=== PATIENT | male | born 1970 | race Caucasian/White ===

== ENCOUNTER → 2016-09-08 | Outpatient (CLI) | payer MEDICARE, OTHER ==
[~2016-09-08] VITALS: Ht 179.1 cm; Wt 147.0 kg
[~2016-09-08] MED LIST: COZAAR100 MG PO; NORCO 325 MG-51 TAB PO; RITALIN LA30 MG PO; RITALIN10 MG PO; UNABLE; ZOLOFT 100MG100 MG PO
[2016-09-08 10:36] VITALS: BP 142/88; PULSE 104
== END ==
LOC: LIGHT 10:10
DX: M54.5 Low back pain (principal); M51.36 Other intervertebral disc degeneration, lumbar region; F33.9 Major depressive disorder, recurrent, unspecified; I10 Essential (primary) hypertension; Z68.42 Body mass index [BMI] 45.0-49.9, adult

== ENCOUNTER → 2016-09-21 | Outpatient (CLI) | payer MEDICARE, OTHER | LOC: LIGHT 13:55 | DX: Z02.89 Encounter for other administrative examinations (principal) ==

== ENCOUNTER → 2016-10-05 | Outpatient (CLI) | payer MEDICARE, OTHER ==
[~2016-10-05] VITALS: Ht 179.1 cm; Wt 148.1 kg
[2016-10-05 16:26] VITALS: BP 119/64; PULSE 115
== END ==
LOC: LIGHT 14:13
DX: M54.5 Low back pain (principal); M51.36 Other intervertebral disc degeneration, lumbar region; F33.9 Major depressive disorder, recurrent, unspecified; I10 Essential (primary) hypertension; Z68.42 Body mass index [BMI] 45.0-49.9, adult

== ENCOUNTER → 2016-10-18 | Outpatient (CLI) | payer MEDICARE, OTHER | LOC: LIGHT 12:58 | DX: Z01.89 Encounter for other specified special examinations (principal) ==

== ENCOUNTER → 2016-11-16 | Outpatient (CLI) | payer MEDICARE, OTHER ==
[~2016-11-16] VITALS: Ht 179.1 cm; Wt 145.4 kg
[2016-11-16 12:54] VITALS: BP 133/78; PULSE 95
== END ==
LOC: LIGHT 12:45
DX: M54.5 Low back pain (principal); M51.36 Other intervertebral disc degeneration, lumbar region; F33.9 Major depressive disorder, recurrent, unspecified; I10 Essential (primary) hypertension; Z68.42 Body mass index [BMI] 45.0-49.9, adult; Z71.3 Dietary counseling and surveillance

== ENCOUNTER → 2016-12-14 | Outpatient (CLI) | payer MEDICARE, OTHER ==
[~2016-12-14] VITALS: Ht 179.1 cm; Wt 141.5 kg
[2016-12-14 15:02] VITALS: BP 138/80; PULSE 100
== END ==
LOC: LIGHT 09:16
DX: Z01.818 Encounter for other preprocedural examination (principal)

== ENCOUNTER 2016-12-30 14:00 | Outpatient (RCR) | payer MEDICARE, OTHER | END 2017-01-07 16:42 | LOC: WSPT 14:00 | DX: S16.1XXA Strain of muscle, fascia and tendon at neck level, initial encounter (principal); Z98.1 Arthrodesis status | CPT/HCPCS: G8990-GP; G8991-GP ==

== ENCOUNTER → 2017-01-04 | Outpatient (CLI) | payer MEDICARE, OTHER | LOC: COL.RAD 09:15 | DX: M75.112 Incomplete rotator cuff tear or rupture of left shoulder, not specified as traumatic (principal) | CPT/HCPCS: A9585; Q9967 ==

== ENCOUNTER → 2017-02-10 | Outpatient (CLI) | payer MEDICARE, OTHER ==
[~2017-02-10] VITALS: Ht 179.1 cm; Wt 143.6 kg
[2017-02-10 13:29] VITALS: BP 110/70; PULSE 84
== END ==
LOC: LIGHT 11:15
DX: M54.5 Low back pain (principal); M51.36 Other intervertebral disc degeneration, lumbar region; F33.9 Major depressive disorder, recurrent, unspecified; I10 Essential (primary) hypertension; Z68.41 Body mass index [BMI] 40.0-44.9, adult; Z71.3 Dietary counseling and surveillance

== ENCOUNTER → 2017-03-17 | Outpatient (CLI) | payer MEDICARE, OTHER ==
[~2017-03-17] VITALS: Ht 179.1 cm; Wt 147.0 kg
[2017-03-17 14:02] VITALS: BP 110/74; PULSE 72
== END ==
LOC: LIGHT 10:51
DX: M54.5 Low back pain (principal); M51.36 Other intervertebral disc degeneration, lumbar region; F33.9 Major depressive disorder, recurrent, unspecified; I10 Essential (primary) hypertension; Z68.42 Body mass index [BMI] 45.0-49.9, adult; Z71.3 Dietary counseling and surveillance

== ENCOUNTER → 2017-03-21 | Outpatient (CLI) | payer MEDICARE, OTHER | LOC: BHSO 09:47 | DX: F43.10 Post-traumatic stress disorder, unspecified (principal) | CPT/HCPCS: 90791-AI ==

== ENCOUNTER 2017-04-07 15:38 | Outpatient (RCR) | payer MEDICARE, OTHER | END 2017-04-07 16:47 | LOC: WSPT 15:38 | DX: Z01.818 Encounter for other preprocedural examination (principal); M75.22 Bicipital tendinitis, left shoulder | CPT/HCPCS: G8984-GP; G8985-GP ==

== ENCOUNTER → 2017-05-04 | Outpatient (CLI) | payer MEDICARE, OTHER | LOC: BHSO 13:54 | DX: F41.1 Generalized anxiety disorder (principal) | CPT/HCPCS: G0463 ==

== ENCOUNTER → 2017-06-20 | Outpatient (CLI) | payer MEDICARE, OTHER | LOC: COL.RAD 11:20 | DX: R31.9 Hematuria, unspecified (principal) | CPT/HCPCS: Q9967 ==

== ENCOUNTER 2017-06-27 15:00 | Outpatient (RCR) | payer MEDICARE, OTHER | END 2017-06-27 15:34 | disposition home or self-care (01) | LOC: WSPT 15:00 | DX: Z47.89 Encounter for other orthopedic aftercare (principal); Z98.890 Other specified postprocedural states | CPT/HCPCS: G0283-GP; G8984-GP; G8985-GP; G8986-GP ==

== ENCOUNTER → 2017-06-28 | Outpatient (CLI) | payer MEDICARE, OTHER | LOC: BHSO 10:16 | DX: F43.10 Post-traumatic stress disorder, unspecified (principal) | CPT/HCPCS: G0463 ==

== ENCOUNTER → 2017-08-05 | Outpatient (CLI) | payer MEDICARE, OTHER | LOC: BHSO 15:50 | DX: F41.1 Generalized anxiety disorder (principal); F43.10 Post-traumatic stress disorder, unspecified | CPT/HCPCS: G0463 ==

== ENCOUNTER → 2017-10-25 | Outpatient (CLI) | payer MEDICARE, OTHER | LOC: BHSO 14:49 | DX: F43.10 Post-traumatic stress disorder, unspecified (principal) ==

== ENCOUNTER 2017-11-17 20:20 | Emergency (ER) | payer MEDICARE, OTHER ==
[~2017-11-17] VITALS: Ht 177.8 cm; Wt 150.0 kg
[2017-11-17 20:23] VITALS: BP 146/89; TEMP 98.8
[2017-11-17 21:26] LABS: BASO # 0.1 (0.0-0.2); BASO % 0.6 % (0.0-2.0); EOS # 0.3 (0.0-0.7); EOS % 3.5 % (0-4.0); GRAN # 5.2 (1.4-6.5); GRAN % 65.3 % (42.2-75.2); HEMATOCRIT 43.8 % (42.0-52.0); HEMOGLOBIN 15.3 g/dl (13.5-18.0); LYMPH # 1.6 (1.2-3.4); LYMPH % 20.3 % (20.0-51.0); MEAN CELL VOLUME 90 fl (80.0-100.0); MEAN CORPUSCULAR HEMOGLOBIN 32 pg (27.0-31.0); MEAN CORPUSCULAR HGB CONC 35 g/dl (33.0-37.0); MEAN PLATELET VOLUME 9.7 fl (7.4-10.4); MONO # 0.8 (0.1-0.6); PLATELET COUNT 212 K/mm3 (130-400); RED BLOOD COUNT 4.85 M/mm3 (4.20-5.60); REDCELL DISTRIBUTION WIDTH-CV 12.8 % (11.5-14.5)
[2017-11-17 21:38] LABS: ALBUMIN 4.1 gm/dL (3.5-5.0); BILIRUBIN,TOTAL 0.3 mg/dL (0.0-1.0); CALCIUM 9.3 mg/dL (8.4-10.2); CREATININE, serum 1.34 mg/dL (0.66-1.25)
[2017-11-17] MEDS ORDERED: NORCO 325 MG-51 TAB PO (22:16)
[2017-11-17 23:00] VITALS: PULSE 92
[2017-11-17] MEDS ORDERED: LAMICTAL200 MG PO (23:36)
[2017-11-17] MEDS ORDERED: RITALIN 20M20 MG/TAB PO (23:36)
[2017-11-17] MEDS ORDERED: VIIBRYD40 MG PO (23:36)
[2017-11-17] MEDS ORDERED: NEURONTIN300 MG/CAP PO (23:36)
== END 2017-11-17 23:10 | disposition home or self-care (01) ==
LOC: COL.ER 20:20
PROVIDERS: Physician Assistant
DX: M79.661 Pain in right lower leg (principal); F17.210 Nicotine dependence, cigarettes, uncomplicated; Z98.890 Other specified postprocedural states
CPT/HCPCS: J3010

== ENCOUNTER → 2018-01-30 | Outpatient (CLI) | payer MEDICARE, OTHER ==
[~2018-01-30] MED LIST changes: +LAMICTAL200 MG PO; +NEURONTIN300 MG/CAP PO; +RITALIN 20M20 MG/TAB PO; +VIIBRYD40 MG PO
== END ==
LOC: BHSO 14:24
DX: F43.10 Post-traumatic stress disorder, unspecified (principal)
CPT/HCPCS: G0463

== ENCOUNTER → 2018-03-10 | Outpatient (CLI) | payer MEDICARE, OTHER | LOC: COL.RAD 12:41 | DX: N50.9 Disorder of male genital organs, unspecified (principal) ==